=== PATIENT | female | born 1960 | race Caucasian/White ===

== ENCOUNTER 2019-12-02 14:58 | Outpatient (CLI) | payer OTHER, SELFPAY ==
--- NOTE | ~2019-12-02 | DEXA_ITS ---
Bone Density Report Name: Dianna Espinoza Age: 59 Sex: Female Ethnicity: White Date of : 1960 Indication: postmenopausal osteoporosis; height loss; prior fracture; hysterectomy; Referring Provider: ANAM GORDILLO Study: Bone densitometry was performed. Exam Date: December 02, 2019 Accession number: [id number] Bone Density: Region BMD T-score Z-score Classification AP Spine (L1, L2, L3) 0.726 -2.7 -1.2 Osteoporosis Femoral Neck (Left) 0.514 -3.0 -1.7 Osteoporosis Total Hip (Left) 0.696 -2.0 -1.0 Osteopenia Total Hip Bilateral Avg 0.682 -2.2 -1.1 Osteopenia Femoral Neck (Right) 0.551 -2.7 -1.3 Osteoporosis Total Hip (Right) 0.667 -2.3 -1.2 Osteopenia World Health Organization criteria for BMD impression classify patients as: Normal (T-score at or above -1.0), Osteopenia (T-score between -1.0 and -2.5), or Osteoporosis (T-score at or below -2.5). 10-year Fracture Risk: FRAX not reported because: Some T-score for Spine Total or Hip Total or Femoral Neck at or below -2.5 Previous Exams: Region Exam Age BMD T-score BMD Change BMD Change Date g/cm2 vs Baseline vs Previous AP Spine(L1, L2, L3) 12/02/2019 59 0.726 -2.7 -0.021(-2.9%) -0.021(-2.9%) 09/30/2017 57 0.748 -2.5 Total Hip(Left) 12/02/2019 59 0.696 -2.0 -0.025(-3.4%) -0.025(-3.4%) 09/30/2017 57 0.721 -1.8 Total Hip(Right) 12/02/2019 59 0.667 -2.3 -0.103(-13.4%) -0.103(-13.4%) 09/30/2017 57 0.770 -1.4 *Denotes significance at 95% confidence level, LSC for AP Spine = 0.022 g/cm2, LSC for Total Hip = 0.027 g/cm2 Clinical Information Provided by Patient: Has had a low trauma fracture Smokes Has used the following medications: Vitamin D, Calcium Has the following medical conditions: Hysterectomy Patient maximum height was 63.0 Menopause Age: 43 No regular weight bearing exercise Drinks caffeinated beverages Onset of menses at age 10 Number of children 1 Missed period for more than 6 months in a row Impression: The patient has established osteoporosis, based on the Left Femoral Neck T-score and the existence of a prior fracture. The patient has risk factors, including: smoking, previous fracture. The BMD for the Total Hip(Right) decreased, changing by -13.4% since the last DXA exam. Discussion: HIGH RISK OF FRACTURE. BONE DENSITY IS UNDESIRABLY LOW AT ONE OR MORE SKELETAL SITES, CONSISTENT WITH POSTMENOPAUSAL OSTEOPOROSIS. This patient's lowest T-score, in a patient who
--- NOTE | ~2019-12-02 | MM_ITS ---
EXAMINATION: MM screening [facility] BI w [facility]ady HISTORY: Screening mammogram TECHNIQUE: Craniocaudal and mediolateral oblique 3-D tomosynthesis images were obtained and synthetic 2-D images were generated. CAD analysis was submitted and interpreted. COMPARISON: 09/30/2017, 12/18/2011, 05/22/2011 BREAST PARENCHYMAL COMPOSITION: There are scattered areas of fibroglandular density. FINDINGS: Focal asymmetry in the upper outer quadrant of the left breast is unchanged on multiple exa minations, consistent with a benign finding. There is no evidence of suspicious mass, calcification, or architectural distortion to suggest malignancy in either breast. There has been no suspicious inte rval change. IMPRESSION: 1. No mammographic evidence of malignancy. 2. Recommend routine screening mammography in one year. BI-RADS Category 2: Benign finding(s). Reviewed, dictated and finalized at location A. NARY ARTIST
== END 2019-12-02 14:59 | disposition home or self-care (01) ==
LOC: ANHIMG 15:02
PROVIDERS: PCP Internal Medicine; Visit Provider Obstetrics & Gynecology Gynecology
DX: Z12.31 Encounter for screening mammogram for malignant neoplasm of breast (principal); Z78.0 Asymptomatic menopausal state; M85.89 Other specified disorders of bone density and structure, multiple sites; M81.0 Age-related osteoporosis without current pathological fracture
CPT/HCPCS: 77063; 77067; 77080

== ENCOUNTER 2021-03-26 09:36 | Emergency (ER) | payer OTHER, SELFPAY ==
--- NOTE | ~2021-03-26 | XR_ITS ---
EXAMINATION: XR chest 2V 03/26/2021 10:19 INDICATION: Chest pain PROCEDURE: PA and lateral views of the chest COMPARISON: No prior studies for comparison. FINDINGS: The lungs are clear. The lungs are hyperinflated which is consistent with, but not diagnost ic of chronic obstructive pulmonary disease. The cardiomediastinal silhouette is within normal limit s. There are no pleural effusions. There is no pneumothorax suspected. IMPRESSION: 1: NO ACUTE CARDIOPULMONARY DISEASE. Reviewed, dictated and finalized at location B.
[2021-03-26 09:46] VITALS: PULSE 79
[2021-03-26 09:47] VITALS: BP 158/91; PULSE 80; RESP 18; TEMP 37.4; O2SAT 99
[2021-03-26 10:03] VITALS: BP 145/92; PULSE 79; RESP 16; O2SAT 99
--- NOTE | 2021-03-26 10:15 | PC.NURSE ---
Pt taken to radiology
[2021-03-26 10:23] LABS: Basophils Percent Auto 0.3 % (0.2-1.2); Eosinophils Absolute Auto 0.1 K/mm3 (0-0.3); Eosinophils Percent Auto 0.8 % (0-4.4); Hematocrit 44.4 % (37.0-47.0); Hemoglobin 14.6 g/dL (12.0-15.0); Immature Granulocyte Absolute 0.02 K/mm3 (0.00-0.031); Immature Granulocyte Percent A 0.2 % (0-0.5); Lymphocytes Absolute Auto 1.94 K/mm3 (0.9-3.2); Lymphocytes Percent Auto 21.2 % (18.3-44.2); Mean Corpuscular HGB Conc 32.9 g/dl (32-36); Mean Corpuscular Hemoglobin 28.8 pg (26-34); Mean Corpuscular Volume 87.6 fl (80-100); Mean Platelet Volume 10.1 fl (7.4-10.4); Monocytes Absolute Auto 0.7 K/mm3 (0.1-0.6); Monocytes Percent Auto 7.7 % (2.6-8.5); Neutrophils Absolute Auto 6.4 K/mm3 (1.3-6.7); Neutrophils Percent Auto 69.8 % (45.5-73.1); Platelet Count Result 212 k/mm3 (150-375); Red Blood Count 5.07 M/mm3 (4.2-5.4); Red Cell Distribution Width 13.4 % (11.5-14.5); White Blood Count 9.2 K/mm3 (4.5-10.0)
[2021-03-26 10:35] LABS: Anion Gap 8 mmol/L (8-16); Blood Urea Nitrogen 5 mg/dL (7-17); Calcium 9.7 mg/dL (8.4-10.2); Carbon Dioxide 28 mmol/L (22-30); Chloride 104 mmol/L (98-107); Estimated CRCL calculation 52 ml/min; Estimated Glomerular Filt Rate > 60; Glucose 86 mg/dL (65-105); Potassium 3.8 mmol/L (3.4-5.0); Sodium 140 mmol/L (137-145)
[2021-03-26 10:36] LABS: INR 0.9; Prothrombin Time 12.7 Seconds (11.1-14.7)
[2021-03-26 10:37] LABS: Partial Thromboplastin Time 25.8 SECONDS (22.3-36.8)
--- NOTE | 2021-03-26 10:37 | ECG_ITS ---
Measurements Intervals [place] Rate: 79 P: 60 [place]: 129 QRS: 21 QRSD: 103 T: 35 QT: 374 QTc: 430 Interpretive Statements SINUS RHYTHM BASELINE ARTIFACT- I, II, III, AVR, AVF, V1-V6 NORMAL ECG Electronically Signed On 03-26-2021 12:05:25 CDT by Alf Peraza D.O.
[2021-03-26 10:40] VITALS: BP 163/82; PULSE 76; RESP 20; O2SAT 99
[2021-03-26 10:40] LABS: D Dimer 0.31 ug/mL (<0.48)
[2021-03-26] MEDS: KETOROLAC 30 MG/ML VIAL (*BKC) IV PUSH (10:43)
[2021-03-26 10:47] LABS: Troponin I < 0.012 ng/mL (0.000-0.034)
--- NOTE | 2021-03-26 11:05 | PC.NURSE ---
Report given to DARWIN Richards
--- NOTE | 2021-03-26 11:21 | ED.CHESTPAIN ---
HPI - Chest Pain General Chief Complaint: Chest Pain Stated Complaint: Pain under R Breast Time Seen by Provider: 03/26/21 09:47 History of Present Illness HPI narrative: Patient is a 61-year-old female who presents ER with chest pain. Right-sided under her right breast. Worse with palpation. No exertional component. Denies fever/chills/sweats. No sinus congestion or sore throat. Reports cough that started last week that is nonproductive. No known sick contacts. Concerned she may have Covid. No loss of taste or smell. No exertional shortness of breath. Has tried Vicodin without relief of pain. Related Data Home Medications Medication Instructions Recorded Confirmed venlafaxine 150 mg PO BID 03/26/21 03/26/21 Allergies Allergy/AdvReac Type Severity Reaction Status Date / Time No Known Allergies Allergy Verified 03/26/21 10:02 Review of Systems Review of Systems: All systems reviewed & are unremarkable except as noted in HPI and below Constitutional: Constitutional: Denies chills, Denies fever(s) and Denies weakness ENT: Denies nasal congestion and Denies sore throat Cardiovascular: Cardiovascular: Reports chest pain, Denies rapid heart rate and Denies radiating jaw, neck or arm pain Respiratory: Respiratory: Reports cough, Denies dyspnea and Denies wheezing PMFSH Past Medical History Medical History (Updated 03/26/21 @ 12:36 by Rey Damon MD) Depression Surgical History Surgical History (Updated 03/26/21 @ 11:24 by Rey Damon MD) H/O: hysterectomy Social History Social History (Updated 03/26/21 @ 11:24 by Rey Damon MD) Smoking status: Current every day smoker Exam Narrative: Exam Narrative: GENERAL: Well-appearing, well-nourished, and in no acute distress. HEAD: Normocephalic, atraumatic. ENT: Mucous membranes moist. CHEST: Clear to auscultation. No respiratory distress. Tender to palpation to the right anterior chest wall. HEART: Regular rate and rhythm. Normal peripheral pulses. ABDOMEN: Soft, nontender, nondistended. EXTREMITIES: Normal range of motion. No edema. SKIN: Warm, dry, no rash. NEURO: Alert and oriented x3. PSYCH: Normal mood and affect. Course Course Emergency Course: Pain is very typical for cardiac disease. Mild improvement with Toradol. Discharge home with anti-inflammatories. Patient did receive a Covid swab and was educated on self isolation. Vital Signs Vital signs: Vital Signs Pulse Rate 79 03/26/21 09:46 Temperature 99.4 F 03/26/21 09:47 Pulse Rate 76 03/26/21 10:40 Respiratory Rate 20 03/26/21 10:40 Blood Pressure 163/82 H 03/26/21 10:40 Pulse Oximetry 99 03/26/21 10:40 MDM - Chest Pain Lab Data Result diagrams: 03/26/21 10:14 03/26/21 10:14 Labs: Lab Results 03/26/21 03/26/21 03/26/21 Range/Units 10:14 10:14 10:14 WBC 9.2 (4.5-10.0) K/mm3 RBC 5.07 (4.2-5.4) M/mm3 Hgb 14.6 (12.0-15.0) g/dL Hct 44.4 (37.0-47.0) % MCV 87.6 (80-100) fl MCH 28.8 (26-34) pg MCHC 32.9 (32-36) g/dl RDW 13.4 (11.5-14.5) % Plt Count 212 (150-375) k/mm3 MPV 10.1 (7.4-10.4) fl Immature Gran % (Auto) 0.2 (0-0.5) % Neut % (Auto) 69.8 (45.5-73.1) % Lymph % (Auto) 21.2 (18.3-44.2) % [place] % (Auto) 7.7 (2.6-8.5) % Eos % (Auto) 0.8 (0-4.4) % Baso % (Auto) 0.3 (0.2-1.2) % Lymph # (Auto) 1.94 (0.9-3.2) K/mm3 Swift # (Auto) 0.7 H (0.1-0.6) K/mm3 Eos # (Auto) 0.1 (0-0.3) K/mm3 Baso # (Auto) 0.0 (0.0-0.1) K/mm3 Abs Immat Gran (auto) 0.02 (0.00-0.031) K/mm3 Absolute Neuts (auto) 6.4 (1.3-6.7) K/mm3 Absolute Nucleated RBC 0.0 (0.0-0.012) K/mm3 Nucleated RBC % 0.0 (0.0-0.2) % PT 12.7 (11.1-14.7) Seconds INR 0.9 APTT 25.8 (22.3-36.8) SECONDS D-Dimer 0.31 (<0.48) ug/mL Sodium 140 (137-145) mmol/L Potassium 3.8 (3.4-5.0) mmol/L Chloride 104 (98-107)
[2021-03-26 12:49] VITALS: BP 153/87; PULSE 76; RESP 18; O2SAT 100
[2021-03-26 23:31] LABS: SARS-CoV-2 RNA PCR Negative
== END 2021-03-26 12:51 | disposition home or self-care (01) ==
PROVIDERS: Emergency Provider Emergency Medicine; PCP Internal Medicine
DX: Z20.822 Contact with and (suspected) exposure to COVID-19 (principal); R07.89 Other chest pain; F32.9 Major depressive disorder, single episode, unspecified
CPT/HCPCS: 36415; 71046; 80048; 84484; 85025; 85380; 85610; 85730; 93005; 96374; 99284; C9803; J1885; U0003; U0005

== ENCOUNTER 2022-02-13 09:23 | Outpatient (CLI) | payer OTHER, SELFPAY ==
--- NOTE | 2022-02-13 11:00 | NEURO_ITS ---
Impression: # Complains of numbness of hands. # Mild evolving left Carpal Tunnel Syndrome. # No ulnar neuropathy. # Normal needle/EMG exam. Nerve Conduction Studies Anti Sensory Summary Table Stim Site NR Peak (ms) P-T Amp (?V) Site1 Site2 Delta-P (ms) Dist (cm) Gopal (m/s) Left Median Anti Sensory (2-3nd Digit) Wrist 2.8 91.0 Wrist 2-3nd Digit 2.8 14.0 50 Wrist 2.7 42.4 Wrist 2-3nd Digit 2.8 14.0 50 Right Median Anti Sensory (2-3nd Digit) Wrist 2.8 47.0 Wrist 2-3nd Digit 2.8 14.0 50 Wrist 2.7 96.6 Wrist 2-3nd Digit 2.8 14.0 50 Left Radial Anti Sensory (Base 1st Digit) Wrist 1.8 81.5 Wrist Base 1st Digit 1.8 0.0 Right Radial Anti Sensory (Base 1st Digit) Wrist 2.5 23.4 Wrist Base 1st Digit 2.5 0.0 Left Ulnar Anti Sensory (5th Digit) Wrist 2.5 55.9 Wrist 5th Digit 2.5 14.0 56 Right Ulnar Anti Sensory (5th Digit) Wrist 2.3 49.1 Wrist 5th Digit 2.3 14.0 61 Motor Summary Table Stim Site NR Onset (ms) O-P Amp (mV) Site1 Site2 Delta-0 (ms) Dist (cm) Gopal (m/s) Left Median Motor (Abd Poll Brev) Wrist 4.0 3.7 Elbow Wrist 4.7 26.0 55 Elbow 8.7 3.4 Right Median Motor (Abd Poll Brev) Wrist 3.0 8.2 Elbow Wrist 4.3 25.0 58 Elbow 7.3 3.8 Left Ulnar Motor (Abd Dig Minimi) Wrist 2.8 4.2 A Elbow Wrist 4.5 26.0 58 A Elbow 7.3 4.0 Right Ulnar Motor (Abd Dig Minimi) Wrist 2.6 5.3 A Elbow Wrist 4.4 25.0 57 A Elbow 7.0 5.0 F Wave Studies NR F-Lat (ms) L-R F-Lat (ms) Left Median (Mrkrs) (Abd Poll Brev) 25.89 1.10 Right Median (Mrkrs) (Abd Poll Brev) 24.79 1.10 Left Ulnar (Mrkrs) (Abd Dig Min) 25.44 0.00 Right Ulnar (Mrkrs) (Abd Dig Min) 25.44 0.00 EMG Side Muscle Nerve Root Ins Act Fibs Amp Dur Recrt Comment Right 1stDorInt Ulnar C8-T1 Nml Nml Nml Nml Nml Right Ext Indicis Radial (Post Int) C7-8 Nml Nml Nml Nml Nml Right Ext Digitorum Radial (Post Int) C7-8 Nml Nml Nml Nml Nml Right BrachioRad Radial C5-6 Nml Nml Nml Nml Nml Right PronatorTeres Median C6-7 Nml Nml Nml Nml Nml Right Abd Poll Brev Median C8-T1 Nml Nml Nml Nml Nml Left 1stDorInt Ulnar C8-T1 Nml Nml Nml Nml Nml Left Ext Indicis Radial (Post Int) C7-8 Nml Nml Nml Nml Nml Left Ext Digitorum Radial (Post Int) C7-8 Nml Nml Nml Nml Nml Left BrachioRad Radial C5-6 Nml Nml Nml Nml Nml Left PronatorTeres Median C6-7 Nml Nml Nml Nml Nml Left Abd Poll Brev Median C8-T1 Nml Nml Nml Nml Nml Right ABD Dig Min Ulnar C8-T1 Nml Nml Nml Nml Nml Right Abd Poll Long Radial (Post Int) C7-8 Nml Nml Nml Nml Nml Left ABD Dig Min Ulnar C8-T1 Nml Nml Nml Nml Nml Left Abd Poll Long Radial (Post Int) C7-8 Nml Nml Nml Nml Nml MTDD
== END 2022-02-13 09:24 | disposition home or self-care (01) ==
PROVIDERS: PCP Internal Medicine; Visit Provider Physician Assistant Surgical
DX: G56.02 Carpal tunnel syndrome, left upper limb (principal)
CPT/HCPCS: 95886; 95911